=== PATIENT | male | born 1955 | race Caucasian/White ===

== ENCOUNTER 2017-11-09 08:02 | Emergency (ER) | payer OTHER ==
[2017-11-09] MEDS ORDERED: SODIUM CHLORIDE 0.9% 1L BAG IV* (08:16)
[2017-11-09] MEDS ORDERED: CEFEPIME 2GM/50 ML (PMX) 50 ML IVPB (08:16)
[2017-11-09] MEDS: CIPROFLOXACIN 500 MG TAB PO (08:30)
[2017-11-09] MEDS ORDERED: VANCOMYCIN 1 GM (PMX) 250 ML IVPB (08:30)
[2017-11-09] MEDS: ACETAMINOPHEN 325 MG TAB PO (08:30)
[2017-11-09 09:02] LABS: ADD UMIC YES; UR ASCORBIC ACID NEGATIVE (NEGATIVE); UR BACTERIA FEW /HPF (NONE SEEN); UR BILIRUBIN (Dip) NEGATIVE (NEGATIVE); UR BLOOD (Dip) 2+ mg/dL (NEGATIVE); UR CLARITY CLOUDY (CLEAR); UR COLOR YELLOW (YELLOW); UR GLUCOSE (Dip) NEGATIVE (NEGATIVE); UR KETONES (Dip) NEGATIVE (NEGATIVE); UR LEUKOCYTE ESTERASE (Dip) 3+ Leu/ul (NEGATIVE); UR NITRITE (Dip) POSITIVE (NEGATIVE); UR NONSQUAMOUS EPITHELIAL CELL 2 /HPF (NONE SEEN); UR RBC 125 /HPF (0-5); UR SPECIFIC GRAVITY (Dip) 1.016 (1.003-1.030); UR TOTAL PROTEIN (Dip) 2+ mg/dl (NEGATIVE); UR UROBILINOGEN (Dip) 2+ mg/dL (NEGATIVE); UR WBC > 182 /HPF (0-5)
== END 2017-11-09 09:30 | disposition home or self-care (01) ==
LOC: E/R 08:02
DX: N30.90 Cystitis, unspecified without hematuria (principal)
CPT/HCPCS: 81001; 87086; 99283

== ENCOUNTER 2017-11-14 19:46 | Emergency (ER) | payer OTHER ==
[2017-11-14] MEDS: LIDOCAINE 2% JELLY 5 ML TOP (21:20)
== END 2017-11-14 22:45 | disposition home or self-care (01) ==
LOC: FTE 19:46
DX: R33.9 Retention of urine, unspecified (principal)
CPT/HCPCS: 99283; Z7502

== ENCOUNTER 2017-11-25 19:33 | Emergency (ER) | payer OTHER ==
[2017-11-25 21:49] LABS: ADD UMIC YES; UR AMORPHOUS CRYSTAL FEW /HPF (NONE SEEN); UR ASCORBIC ACID NEGATIVE (NEGATIVE); UR BACTERIA FEW /HPF (NONE SEEN); UR BILIRUBIN (Dip) NEGATIVE (NEGATIVE); UR BLOOD (Dip) 1+ mg/dL (NEGATIVE); UR CLARITY CLOUDY (CLEAR); UR COLOR YELLOW (YELLOW); UR GLUCOSE (Dip) NEGATIVE (NEGATIVE); UR KETONES (Dip) NEGATIVE (NEGATIVE); UR LEUKOCYTE ESTERASE (Dip) 3+ Leu/ul (NEGATIVE); UR NITRITE (Dip) NEGATIVE (NEGATIVE); UR RBC 6 /HPF (0-5); UR SPECIFIC GRAVITY (Dip) 1.008 (1.003-1.030); UR TOTAL PROTEIN (Dip) 1+ mg/dl (NEGATIVE); UR UROBILINOGEN (Dip) 1+ mg/dL (NEGATIVE); UR WBC > 182 /HPF (0-5)
[2017-11-25] MEDS: CEFTRIAXONE 1 GM INJ IM (23:03)
== END 2017-11-25 23:20 | disposition home or self-care (01) ==
LOC: FTE 23:20
DX: N39.0 Urinary tract infection, site not specified (principal)
CPT/HCPCS: 81001; 87086; 87591; 96372; 99284-25